=== PATIENT | female | born 1960 | race Caucasian/White ===

== ENCOUNTER 2021-05-01 18:20 | Inpatient (IN) | payer MEDICARE, MEDICAID ==
[2021-05-01 19:49] LABS: Amphetamine Screen,Urine Not Detected (NotDetected); Barbiturate Screen,Urine Not Detected (NotDetected); Benzodiazepines Screen,Urine Detected (NotDetected); Cocaine Screen,Urine Not Detected (NotDetected); Methadone Screen, Urine Not Detected (NotDetected); Opiate Screen,Urine Not Detected (NotDetected); Oxycodone Screen, Urine Not Detected (NotDetected); Phencyclidine Screen,Urine Not Detected (NotDetected); Tricyclic Antidepressant,Urine Not Detected (NotDetected); Urn Cannabinoid Scrn Not Detected (NotDetected)
--- NOTE | 2021-05-01 20:04 | ED ---
Psych HPI - General Chief Complaint: Psychiatric Symptoms Stated Complaint: Mental Health Time Seen by Provider: 05/01/21 19:23 Source: patient, RN notes reviewed Mode of arrival: ambulatory - History of Present Illness Initial Comments: 61-year-old female to emergency department pickup order for evaluation of some homicidal threats hospital suicidal ideation without plan. She's quit taking her medication she believes the psychiatrist was try to her with her medications. She denies any fevers chills nausea vomiting sweats she missed a voicing thoughts of brain a gun into the psychiatric office but states that she would not really do that. On my exam she denies suicidal thoughts MD Complaint: feels depressed, other - Related Data Home Medications Medication Instructions Recorded Confirmed Zonisamide [Zonegran] 200 mg PO TID 08/02/14 05/01/21 lamoTRIgine [LaMICtal] 200 mg PO TID 08/02/14 05/01/21 ALPRAZolam [Xanax] 0.25 - 0.5 mg PO BID@1200,2000 05/01/21 05/01/21 ALPRAZolam [Xanax] 0.25 - 0.5 mg PO DAILY PRN 05/01/21 05/01/21 ARIPiprazole [Abilify] 15 mg PO HS 05/01/21 05/01/21 Citalopram Hydrobromide [CeleXA] 20 mg PO DAILY 05/01/21 05/01/21 Furosemide [Lasix] 20 mg PO DAILY 05/01/21 05/01/21 Levothyroxine Sodium [Synthroid] 50 mcg PO DAILY 05/01/21 05/01/21 Oxybutynin Chloride [Oxybutynin 10 mg PO DAILY 05/01/21 05/01/21 Chloride ER] Pantoprazole [Protonix] 40 mg PO BID 05/01/21 05/01/21 Potassium Chloride ER [K-Dur 20] 20 meq PO W/BRKFST 05/01/21 05/01/21 Temazepam [Restoril] 30 mg PO HS 05/01/21 05/01/21 Topiramate 50 mg PO BID 05/01/21 05/01/21 Allergies Allergy/AdvReac Type Severity Reaction Status Date / Time phenytoin sodium Allergy Unknown Verified 05/01/21 23:48 [From Dilantin] phenytoin sodium extended Allergy Unknown Verified 05/01/21 23:48 [From Dilantin] quetiapine fumarate Allergy Unknown Verified 05/01/21 23:48 [From Seroquel] Review of Systems ROS Statement: Those systems with pertinent positive or pertinent negative responses have been documented in the HPI. ROS Other: All systems not noted in ROS Statement are negative. Past Medical History Past Medical History: Seizure Disorder, Thyroid Disorder Additional Past Medical History / Comment(s): migraines, History of Any Multi-Drug Resistant Organisms: None Reported Past Surgical History: No Surgical Hx Reported Past Anesthesia/Blood Transfusion Reactions: No Reported Reaction Additional Past Anesthesia/Blood Transfusion Reaction / Comment(s): never had anesthesia, unknown family hx Past Psychological History: Anxiety, Depression Smoking Status: Never smoker Past Alcohol Use History: None Reported Past Drug Use History: None Reported - Past Family History Mother Family Medical History: Unable to Obtain General Exam - General Exam Comments Initial Comments: This is a well-developed well-nourished awake alert oriented 3 female Limitations: no limitations General appearance: alert, in no apparent distress Head exam: Present: atraumatic, normocephalic, normal inspection Eye exam: Present: normal appearance, PERRL, EOMI. Absent: scleral icterus, conjunctival injection, periorbital swelling ENT exam: Present: normal exam, mucous membranes moist Neck exam: Present: normal inspection. Absent: tenderness, meningismus, lymphadenopathy Respiratory exam: Present: normal lung sounds bilaterally. Absent: respiratory distress, wheezes, rales, rhonchi, stridor Cardiovascular Exam: Present: regular rate, normal rhythm, normal heart sounds. Absent: systolic murmur, diastolic murmur, rubs, gallop, clicks GI/Abdominal exam: Present: soft, normal bowel sounds. Absent: distended, tenderness, guarding, rebound, rigid Extremities exam: Present: normal inspection, full ROM, normal capillary refill. Absent: tenderness, pedal edema, joint swelling, calf tenderness Back exam: Present: normal inspection Neurological exam: Present: alert, oriented X3, CN II-XII intact Psychiatric exam: Present: normal mood, flat affect, homicidal ideation Skin exam: Present: warm, dry, intact, normal color. Absent: rash Course Vital Signs 05/01/21 05/02/21 19:07 05:01 Temperature 98.2 F Pulse Rate 61 60 Respiratory 20 19 Rate Blood Pressure 163/82 151/76 O2 Sat by Pulse 100 Oximetry - Reevaluation(s) Reevaluation #1: 05/01/21 23:09 Patient's care was endorsed to Dr. Gonzalez at our shift change pending EPS evaluation Medical Decision Making - Medical Decision Making Sugars it was endorsed to Dr. gonzalez at shift change and was ultimately admitted to the mental health unit - Lab Data Lab Results 05/01/21 05/02/21 Range/Units 19:35 03:02 Urine Opiates Screen Not Detected (NotDetected) Ur Oxycodone Screen Not Detected (NotDetected) Urine Methadone Screen Not Detected (NotDetected) Ur Propoxyphene Screen Not Detected (NotDetected) Ur Barbiturates Screen Not Detected (NotDetected) U Tricyclic Antidepress Not Detected (NotDetected) Ur Phencyclidine Scrn Not Detected (NotDetected) Ur Amphetamines Screen Not Detected (NotDetected) U Methamphetamines Scrn Not Detected (NotDetected) U Benzodiazepines Scrn Detected H (NotDetected) Urine Cocaine Screen Not Detected (NotDetected) U Marijuana (THC) Screen Not Detected (NotDetected) Coronavirus (PCR) Not Detected (Not Detectd) Disposition Clinical Impression: Depression, Suicidal ideation, Homicidal ideation Disposition: TRANSFER TO PSYCH HOSP/UNIT Condition: Fair
[2021-05-01] MEDS: lamoTRIgine 100 MG TAB PO SCH ×2 (21:39→23:04)
[2021-05-01] MEDS: ZONISAMIDE 100 MG CAP PO SCH (21:39)
[2021-05-02] MEDS ORDERED: MAG HYDROX/AL HYDROX/SIMETH 30 ML CUP PO PRN (04:48)
[2021-05-02] MEDS ORDERED: LORazepam 1 MG TAB PO PRN (04:48)
[2021-05-02] MEDS ORDERED: HALOPERIDOL LACTATE 5 MG/ML 1 ML VIAL IM PRN (04:48)
[2021-05-02] MEDS ORDERED: ACETAMINOPHEN TAB 325 MG TAB PO PRN (04:48)
[2021-05-02] MEDS ORDERED: MAGNESIUM HYDROXIDE 2,400 MG/10 ML CUP PO PRN (04:48)
[2021-05-02] MEDS ORDERED: LORazepam 2 MG/ML INJ IM PRN (04:55)
[2021-05-02] MEDS ORDERED: haloperidoL 5 MG TAB PO PRN (04:56)
[2021-05-02] MEDS: LEVOTHYROXINE 50 MCG TAB PO SCH (06:09)
[2021-05-02] MEDS: lamoTRIgine 100 MG TAB PO SCH ×3 (07:35→20:40)
[2021-05-02] MEDS: ZONISAMIDE 100 MG CAP PO SCH ×3 (07:36→21:39)
[2021-05-02] MEDS ORDERED: TOPIRAMATE 25 MG TAB PO SCH (09:00)
[2021-05-02] MEDS ORDERED: ZONISAMIDE 100 MG CAP PO SCH (09:00)
[2021-05-02] MEDS ORDERED: SERTRALINE 25 MG TAB PO STA (10:07)
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
--- NOTE | 2021-05-02 17:48 | P.HPMEDMHU ---
History of Present Illness H&P Date: 05/02/21 Chief Complaint: Difficulty with swallowing Patient is a 61-year-old female with a past medical history of seizure disorder and hypothyroidism who is admitted to the behavioral health unit for homicide idealization. Patient states that she has been having ongoing difficulty with swallowing. She states that whenever she eats anything she feels as if he gets stuck in her throat. She states she has a follow-up appointment with a specialty doctor to do an EGD. Patient denies any shortness of breath. Review of Systems 10 ROS reviewed and are negative except as noted in HPI Past Medical History Past Medical History: Seizure Disorder, Thyroid Disorder Additional Past Medical History / Comment(s): migraines, History of Any Multi-Drug Resistant Organisms: None Reported Past Surgical History: No Surgical Hx Reported Past Anesthesia/Blood Transfusion Reactions: No Reported Reaction Additional Past Anesthesia/Blood Transfusion Reaction / Comment(s): never had anesthesia, unknown family hx Past Psychological History: Anxiety, Depression Smoking Status: Never smoker Past Alcohol Use History: None Reported Past Drug Use History: None Reported - Past Family History Mother Family Medical History: Unable to Obtain Medications and Allergies Home Medications Medication Instructions Recorded Confirmed Type Zonisamide [Zonegran] 200 mg PO TID 08/02/14 05/01/21 History lamoTRIgine [LaMICtal] 200 mg PO TID 08/02/14 05/01/21 History ALPRAZolam [Xanax] 0.25 - 0.5 mg PO BID@1200,2000 05/01/21 05/01/21 History ALPRAZolam [Xanax] 0.25 - 0.5 mg PO DAILY PRN 05/01/21 05/01/21 History ARIPiprazole [Abilify] 15 mg PO HS 05/01/21 05/01/21 History Citalopram Hydrobromide [CeleXA] 20 mg PO DAILY 05/01/21 05/01/21 History Furosemide [Lasix] 20 mg PO DAILY 05/01/21 05/01/21 History Levothyroxine Sodium [Synthroid] 50 mcg PO DAILY 05/01/21 05/01/21 History Oxybutynin Chloride [Oxybutynin 10 mg PO DAILY 05/01/21 05/01/21 History Chloride ER] Pantoprazole [Protonix] 40 mg PO BID 05/01/21 05/01/21 History Potassium Chloride ER [K-Dur 20] 20 meq PO W/BRKFST 05/01/21 05/01/21 History Temazepam [Restoril] 30 mg PO HS 05/01/21 05/01/21 History Topiramate 50 mg PO BID 05/01/21 05/01/21 History Allergies Allergy/AdvReac Type Severity Reaction Status Date / Time phenytoin sodium Allergy Unknown Verified 05/01/21 23:48 [From Dilantin] phenytoin sodium extended Allergy Unknown Verified 05/01/21 23:48 [From Dilantin] quetiapine fumarate Allergy Unknown Verified 05/01/21 23:48 [From Seroquel] Physical Exam Osteopathic Statement: *. No significant issues noted on an osteopathic structural exam other than those noted in the History and Physical/Consult. Vitals: Vital Signs Temp Pulse Pulse Resp BP BP Pulse Ox 05/02/21 06:22 97.5 F L 58 L 17 135/69 98 05/02/21 05:01 60 19 151/76 05/01/21 19:07 98.2 F 61 20 163/82 100 Intake and Output 05/02/21 05/02/21 05/02/21 06:59 14:59 22:59 Other: Weight 93.242 kg General: [Alert and oriented, well nourished, no acute distress]. Eye: [PERRL, EOMI, normal conjunctiva]. HENT: [Normocephalic, clear tympanic membranes, normal hearing, moist oral mucosa, no scleral icterus, no sinus tenderness]. Neck: [Supple, non-tender, no carotid bruits, no JVD, no lymphadenopathy]. Lungs: [Clear to auscultation and percussion, non-labored respiration]. Heart: [Normal rate, regular rhythm, no murmur, gallop or edema]. Abdomen: [Soft, non-tender, non-distended, normal bowel sounds, no masses]. Musculoskeletal: [Normal range of motion and strength, no tenderness or swelling]. Skin: [Skin is warm, dry and pink, no rashes or lesions]. Neurologic: [Awake, alert, and oriented X3, CN II-XII intact]. Psychiatric: [Cooperative, appropriate mood and affect]. Cranial Nerve Examination - Cranial Nerves Cranial Nerve I- Olfactory: Intact Cranial Nerve II- Optic: Intact Cranial Nerve III- Oculomotor: Intact Cranial Nerve IV- Trochlear: Intact Cranial Nerve V- Trigeminal: Intact Cranial Nerve - Abducens: Intact Cranial Nerve VII- Facial: Intact Cranial Nerve VIII- Auditory: Intact Cranial Nerve IX- Glossopharyngeal: Intact Cranial Nerve X- Vagus: Intact Cranial Nerve XI- Accessory: Intact Cranial Nerve XII- Hypoglossal: Intact Results Labs: Abnormal Lab Results - Last 24 Hours (Table) 05/01/21 Range/Units 19:35 U Benzodiazepines Scrn Detected H (NotDetected) Thrombosis Risk Factor Assmnt - Choose All That Apply Each Factor Represents 1 point: Obesity (BMI >25), Varicose veins Each Risk Factor Represents 2 Points: Age 61-74 years Other congenital or acquired thrombophilia - If yes, enter type in comment: No Thrombosis Risk Factor Assessment Total Risk Factor Score: 4 Thrombosis Risk Factor Assessment Level: Moderate Risk Assessment and Plan Assessment: Posttraumatic stress disorder Rule out depression -Your psychiatric management Seizure disorder -Resume topiramate and Lamictal Hypothyroidism -Resume levothyroxine CODE STATUS:full code DVT prophylaxis: Encourage ambulation
[2021-05-02] MEDS: cloNIDine HCL 0.1 MG TAB PO SCH (20:40)
[2021-05-02] MEDS: TOPIRAMATE 25 MG TAB PO SCH (20:40)
[2021-05-03] MEDS: LEVOTHYROXINE 50 MCG TAB PO SCH (06:10)
[2021-05-03] MEDS: SERTRALINE 50 MG TAB PO SCH (08:43)
[2021-05-03] MEDS: TOPIRAMATE 25 MG TAB PO SCH ×2 (08:43→20:57)
[2021-05-03] MEDS: cloNIDine HCL 0.1 MG TAB PO SCH ×2 (08:43→20:57)
[2021-05-03] MEDS: lamoTRIgine 100 MG TAB PO SCH ×3 (08:43→20:58)
[2021-05-03] MEDS: ZONISAMIDE 100 MG CAP PO SCH ×3 (08:46→20:58)
[2021-05-03 08:48] LABS: Basophils % (A) 0 %; Eosinophils % (A) 0 %; HGB 13.5 gm/dL (11.4-16.0); Lymphocytes # (A) 1.4 k/uL (1.0-4.8); Lymphocytes % (A) 40 %; MCHC 33.7 g/dL (31.0-37.0); MCV 94.8 fL (80.0-100.0); Mean Platelet Volume 7.1; Monocytes # (A) 0.2 k/uL (0-1.0); Monocytes % (A) 6 %; Neutrophils # (A) 1.8 k/uL (1.3-7.7); Neutrophils % (A) 52 %; Platelet Count 182 k/uL (150-450); Poikilocytosis Slight; RBC 4.22 m/uL (3.80-5.40); RDW 14.5 % (11.5-15.5); WBC 3.5 k/uL (3.8-10.6)
[2021-05-03 09:10] LABS: ALT 8 U/L (4-34); AST 20 U/L (14-36); African American GFR (CKD) 71 (>60 ml/min/1.73 sqM); Albumin 4.2 g/dL (3.5-5.0); Alkaline Phosphatase 58 U/L (38-126); Anion Gap 8 mmol/L; Blood Urea Nitrogen 14 mg/dL (7-17); Calcium 9.5 mg/dL (8.4-10.2); Carbon Dioxide 23 mmol/L (22-30); Chloride 109 mmol/L (98-107); Glucose 97 mg/dL (74-99); Non-African American GFR(CKD) 62 (>60 ml/min/1.73 sqM); Potassium 4.2 mmol/L (3.5-5.1); Sodium 140 mmol/L (137-145); Total Bilirubin 0.7 mg/dL (0.2-1.3)
[2021-05-03 10:31] LABS: Appearance,Urine Clear (Clear); Bilirubin,Urine Negative (Negative); Blood,Urine Small (Negative); Color,Urine Yellow; Glucose,Urine (UA) Negative (Negative); Ketones,Urine Negative (Negative); Leukocyte Esterase,Urine Small (Negative); Mucus,Urine Moderate /hpf; Nitrite,Urine Negative (Negative); Protein,Urine Negative (Negative); RBC,Urine 3 /hpf (0-5); Specific Gravity,Urine 1.017 (1.001-1.035); Squamous Epithelial Cell,Urine 1 /hpf (0-4); Urobilinogen,Urine <2.0 mg/dL (<2.0); WBC,Urine 3 /hpf (0-5)
[2021-05-03 12:26] LABS: Chol/HDL Ratio 3.56 Ratio; LDL Cholesterol,Calculated 120.9 mg/dL (0.0-131.0)
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
[2021-05-04] MEDS: LEVOTHYROXINE 50 MCG TAB PO SCH (06:12)
[2021-05-04 07:46] LABS: T4, Free (Free Thyroxine) 1.35 ng/dL (0.78-2.19)
[2021-05-04] MEDS: lamoTRIgine 100 MG TAB PO SCH ×3 (07:53→21:13)
[2021-05-04] MEDS: SERTRALINE 50 MG TAB PO SCH (07:54)
[2021-05-04] MEDS: cloNIDine HCL 0.1 MG TAB PO SCH ×2 (07:54→21:12)
[2021-05-04] MEDS: TOPIRAMATE 25 MG TAB PO SCH ×2 (07:54→21:13)
[2021-05-04] MEDS: ZONISAMIDE 100 MG CAP PO SCH ×3 (07:55→21:13)
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
[2021-05-05 04:37] VITALS: RESP 16
[2021-05-05] MEDS: LEVOTHYROXINE 50 MCG TAB PO SCH (06:23)
[2021-05-05] MEDS: SERTRALINE 50 MG TAB PO SCH (08:39)
[2021-05-05] MEDS: lamoTRIgine 100 MG TAB PO SCH ×3 (08:39→20:47)
[2021-05-05] MEDS: ZONISAMIDE 100 MG CAP PO SCH ×3 (08:40→20:47)
[2021-05-05] MEDS: TOPIRAMATE 25 MG TAB PO SCH ×2 (08:40→20:47)
[2021-05-05] MEDS: cloNIDine HCL 0.1 MG TAB PO SCH ×2 (08:41→20:47)
--- NOTE | 2021-05-05 11:02 | P.PN ---
Progress Note - Text Progress Note Date: 05/05/21 Interval History: Patient was seen attending group and was directable and agreeable to speak with grant writer in the office. She reports no suicidal or homicidal ideation, intention, and/or plan. She denies any auditory or visual hallucinations. She reports no paranoia or other delusions. She does admit that she has no access to a firearm which she states that the police are well aware of. She reports that she bought the firearm after her . She states it is around her for protection only. She vehemently states that she would not try to hurt anyone. She expresses regret and remorse for her words towards Dr. Myles. She has been adherent with her medications and is not reporting any significant side effects at this time. She denies any medical during group, the patient will make comments about working with the police and checking in on people and reporting things to them. This is also been stated last week. The patient states that she wants to do her part for her community. However the patient has not had any significant issues with this practice prior to this admission. Mental Status Exam: General Appearance: Patient appears to be stated age is alert, directable, and cooperative. Hirsutism is noted. Behavior: Patient is calmly seated without any agitated behavior. Speech: Patient's speech is fluent and nonpressured. Mood/Affect: Mood is improving mildly, affect is congruent and constricted. Suicidality/Homicidality: Patient denies having any suicidal or homicidal ideation intent or plan. Perceptions: Patient denies any visual hallucinations and denies any auditory hallucinations Though content/process: There is no evidence of any delusional thought content and thought process is linear and goal-directed. Memory and concentration: AOX3, grossly intact for the purposes of this session Judgment and insight: Improving mildly Vital Signs Temp 97.0 F L 05/05/21 04:35 Pulse 81 05/05/21 04:35 Resp 16 05/05/21 04:35 BP 102/59 05/05/21 04:35 Pulse Ox 98 05/05/21 04:35 Intake & Output 05/04/21 05/05/21 05/05/21 18:59 06:59 18:59 Weight 94 kg Laboratory Results - Last 24 Hours 05/02/21 11:00 Lamotrigine 11.6 Assessment Developmental disability Posttraumatic stress disorder Plan: -Patient continues to meet criteria for inpatient psychiatric admission for symptom stabilization and safety. Patient has signed adult voluntary form and medication consent and was placed in patient's chart. -Medications: Continue clonidine 0.1 mg by mouth twice a day for PTSD Continue Topamax 25 mg by mouth twice a day for seizure disorder/off label use for mood stability Continue Lamictal for seizure disorder Continue Zoloft 50 mg by mouth daily for depression/anxiety/PTSD -When necessary Ativan and Haldol for agitation/aggression. -SW on board for discharge planning. Encouraged the patient to participate in milieu.
[2021-05-06] MEDS: LEVOTHYROXINE 50 MCG TAB PO SCH (05:57)
[2021-05-06 06:01] VITALS: PULSE 72; TEMP 99.1
[2021-05-06] MEDS: cloNIDine HCL 0.1 MG TAB PO SCH (08:41)
[2021-05-06] MEDS: lamoTRIgine 100 MG TAB PO SCH (08:42)
[2021-05-06] MEDS: SERTRALINE 50 MG TAB PO SCH (08:42)
[2021-05-06] MEDS: ZONISAMIDE 100 MG CAP PO SCH (08:42)
[2021-05-06] MEDS: TOPIRAMATE 25 MG TAB PO SCH (08:42)
[2021-05-06 08:43] VITALS: BP 117/63
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
== END 2021-05-06 10:33 | disposition home or self-care (01) | DRG 881 ==
LOC: EC 18:20 → 3MHU 05-02 04:37
PROVIDERS: ADMIT Psychiatry & Neurology Psychiatry; ATTEND Psychiatry & Neurology Psychiatry
DX: F34.1 Dysthymic disorder (principal); R45.851 Suicidal ideations; F79 Unspecified intellectual disabilities; F43.10 Post-traumatic stress disorder, unspecified; G40.909 Epilepsy, unspecified, not intractable, without status epilepticus; F22 Delusional disorders; E07.9 Disorder of thyroid, unspecified; M19.90 Unspecified osteoarthritis, unspecified site; R45.850 Homicidal ideations; Z62.810 Personal history of physical and sexual abuse in childhood; Z79.890 Hormone replacement therapy; Z79.899 Other long term (current) drug therapy; Z20.822 Contact with and (suspected) exposure to COVID-19
CPT/HCPCS: 80053; 80061; 80175; 80306; 81001; 82075; 83036; 84439; 84443; 84481; 85025; 87635; 99285